=== PATIENT | female | born 1985 | race Caucasian/White ===

== ENCOUNTER 2016-05-26 10:00 | Emergency (ER) | payer OTHER ==
[2016-05-26 10:27] VITALS: BP 110/76; PULSE 94; RESP 20; TEMP 99.2; O2SAT 97
--- NOTE | 2016-05-26 10:30 | UCPHY ---
H & P Time Seen by Provider: 05/26/16 10:09 Patient Type: Established HPI/ROS: This patient has a 10 day history of coughing that has been a dry hacky cough until the last 2 days she has developed yellowish sputum production. She reports associated fevers up to 101 over the past 5 days. She has a slight tight feeling that feels bronchial to her in her chest. She reports partial relief from albuterol inhaler for about a 0.5 hour time but then the symptoms returned and she realizes that her albuterol as . No other exacerbating or alleviating factors. ROS: Constitutional symptoms as per HPI. No others. HEENT: No significant facial pain or sore throat. No ear pain. Pulmonary: No pleuritic pain. No respiratory distress cardiovascular: No lightheadedness or heart palpitations. No lower extremity swelling. 5 point ROS is otherwise negative. Past Medical/Surgical History: Otherwise healthy Smoking Status: Never smoked Physical Exam: Discussion: Patient with findings consistent with bronchitis. No significant findings clinically for lower respiratory infection Constitutional: Initial Vital Signs Temperature (C) 37.3 C 05/26/16 10:21 Heart Rate 94 05/26/16 10:21 Respiratory Rate 20 05/26/16 10:21 Blood Pressure 110/76 05/26/16 10:21 O2 Sat (%) 97 05/26/16 10:21 O2 Delivery Mode Room Air Allergies/Adverse Reactions: artificial cinnamon flavoring Allergy (Uncoded 05/26/16 10:21) tongue swells Home Medications: Medication Instructions Recorded Albuterol 03/06/14 Zoloft 100mg (RX) 03/06/14 Albuterol Hfa Anes Only [Proair 2 puffs IH Q4 PRN #1 mdi 05/26/16 Hfa Icu (*)] Azithromycin [Zithromax] 250 mg PO DAILY #6 tab 05/26/16 Fluticasone Hfa 220 Mcg [Flovent 2 puffs IH DAILY #1 mdi 05/26/16 220 MCG Hfa MDI (*)] MDM/Departure - Depart Disposition: Home, Routine, Self-Care Clinical Impression: Acute bronchitis Qualifiers: Bronchitis organism: unspecified organism Qualifier Code: (J20.9) Acute bronchitis, unspecified Condition: Good Instructions: Acute Bronchitis (ED) Additional Instructions: Diagnosis: Acute bronchitis Plan: Humidifier Albuterol inhaler-2 puffs per 4 hours as needed for cough, wheeze or shortness of breath Zithromax antibiotic Flovent steroid inhaler in addition if her cough is not improving over the next 5-7 days with treatment plan. Return for any significant worsening despite the treatment plan Prescriptions: Fluticasone Hfa 220 Mcg [Flovent 220 MCG Hfa MDI (*)] 2 puffs IH DAILY #1 mdi Albuterol Hfa Anes Only [Proair Hfa Icu (*)] 2 puffs IH Q4 PRN #1 mdi PRN Reason: Wheezing Azithromycin [Zithromax] 250 mg PO DAILY #6 tab Referrals: [place] STATE,. [Primary Care Provider] - As per Instructions - PQRS PQRS Measurement: NA
== END 2016-05-26 11:08 | disposition home or self-care (01) ==
LOC: CED 10:00
DX: J20.9 Acute bronchitis, unspecified (principal)
CPT/HCPCS: G0463-PO